=== PATIENT | female | born 1955 | race Caucasian/White ===

== ENCOUNTER 2021-09-30 13:02 | Emergency (ER) | payer MEDICARE, MEDICAID ==
[~2021-09-30] VITALS: Ht 157.5 cm; Wt 46.0 kg
[~2021-09-30 13:02] MED LIST: AMOX500T2 PO; LOSA100T32 PO; TRAM50TA3 PO
[2021-09-30 17:06] LABS: BASOPHILS % 0.6 % (0.0-2.0); EOSINOPHILS % 0.6 % (0.0-5.0); HEMATOCRIT. 33.3 % (36.0-48.0); HEMOGLOBIN. 11.2 g/dL (12.0-16.0); LYMPHOCYTES % 16.6 % (20.0-50.0); MEAN CORPUSCULAR HEMOGLOBIN 32.3 pg (28.0-32.0); MEAN CORPUSCULAR VOLUME 96.1 fL (81.0-99.0); MEAN PLATELET VOLUME 8.9 fl (7.4-10.4); MONOCYTES % 5.2 % (2.0-8.0); PLATELET 317 x1000/uL (130-400); RED BLOOD CELL COUNT 3.47 mill/uL (4.2-5.4); RED CELL DISTRIBUTION WIDTH 13.3 % (11.6-14.6)
[2021-09-30 17:12] LABS: CHLORIDE 109 mEq/L (98-107)
[2021-09-30 18:50] VITALS: BP 156/66
== END 2021-09-30 18:50 | disposition home or self-care (01) ==
LOC: ER 13:02
DX: M25.572 Pain in left ankle and joints of left foot (principal); M25.551 Pain in right hip; M79.89 Other specified soft tissue disorders
CPT/HCPCS: 36415; 71045; 73522; 73610; 80053; 83880; 85025; 93971; 99285